=== PATIENT | male | born 1955 | race Caucasian/White ===

== ENCOUNTER 2018-06-08 15:41 | Outpatient (CLI) | payer OTHER ==
[2018-06-08 16:55] LABS: Hemoglobin 13.4 g/dL (14.0-18.0); Mean Corpuscular HGB CONC 33.9 g/dL (32.0-36.0); Mean Corpuscular Hemoglobin 34.6 pg (27.0-31.0); Mean Platelet Volume 6.9 fL (7.4-10.4); Platelet Count 273 thou/uL (130-400); RBC Distribution Width 11.8 % (11.5-14.5); Red Blood Cell (RBC) Count 3.88 mill/uL (4.70-6.10); White Blood Cell (WBC) Count 6.3 thou/uL (4.8-10.8)
[2018-06-08 17:20] LABS: Anion Gap 14 mmol/L (10-20); BUN (Urea Nitrogen) 12 mg/dL (8.4-25.7); Calc. Creatinine Clearance 0 mL/min (70-130); Calcium 9.7 mg/dL (7.8-10.44); Carbon Dioxide 27 mmol/L (23-31); Chloride 100 mmol/L (98-107); Estimated GFR-MDRD Greater than 90; Glucose 98 mg/dL (80-115); Potassium 4.2 mmol/L (3.5-5.1); Sodium 137 mmol/L (136-145)
== END 2018-06-08 15:42 | disposition home or self-care (01) ==
LOC: LABBT 15:41
PROVIDERS: ATTEND Orthopaedic Surgery
DX: Z01.818 Encounter for other preprocedural examination (principal); M75.101 Unspecified rotator cuff tear or rupture of right shoulder, not specified as traumatic
CPT/HCPCS: 80048; 85027; 93005; 93010

== ENCOUNTER 2018-06-10 10:52 | Day surgery (SDC) | payer OTHER ==
[2018-06-08 16:11] VITALS: BMI 26.8
[2018-06-10] MEDS ORDERED: Fentanyl 100 MCG/2 ML VIAL ONE ×2 (12:16→13:51)
[2018-06-10] MEDS ORDERED: Midazolam HCl 2 mg/2 ml Vial ONE (12:16)
[2018-06-10] MEDS ORDERED: Promethazine HCl 25 MG/ML VIAL IM PRN (12:45)
[2018-06-10] MEDS ORDERED: HYDROcodone/Acetaminophen 5/325 mg Tablet PO PRN ×2 (12:45)
[2018-06-10] MEDS ORDERED: Ondansetron HCl/PF 4 MG/2 ML Vial IVP PRN (12:45)
[2018-06-10] MEDS ORDERED: Ropivacaine 0.2% 550 ML 550 ML NERVE BLCK SCH (12:45)
[2018-06-10] MEDS ORDERED: traMADol HCl 50 MG TAB PO PRN ×2 (12:45)
[2018-06-10] MEDS ORDERED: Zolpidem Tartrate 5 MG TAB PO PRN (12:45)
[2018-06-10] MEDS ORDERED: Fentanyl 100 MCG/2 ML VIAL IV PRN (12:46)
[2018-06-10] MEDS ORDERED: CEFAZOLIN/Water 2 GM/20 ML SYRINGE ONE (14:14)
[2018-06-10] MEDS ORDERED: Bupivacaine/Epinephrine 0.25% 30 ML VIAL ONE (14:46)
[2018-06-10] MEDS ORDERED: PHENYLEPHRINE-NS 100 MCG/ML 10 ML SYRINGE ONE (16:01)
--- NOTE | 2018-06-11 09:27 | HP ---
HISTORY OF PRESENT ILLNESS: Mr. Steve Jolly is a 63-year-old right-handed male, right shoulder pain for 4 weeks. 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 He has pain at night. MRI showed a full thickness tear of supraspinatus, AC joint arthritis, biceps tendonopathy. PAST MEDICAL HISTORY: Hypertension, embolism, thrombus, DVT lower extremity. PAST SURGICAL HISTORY: Left knee replacement, colonoscopy. MEDICATIONS: Include amlodipine, benazepril, melatonin, meloxicam, and multivitamin. SOCIAL HISTORY: Former smoker. Alcohol occasional. Denies drug use. 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 ALLERGIES: No known allergies. PHYSICAL EXAMINATION: GENERAL: Alert and oriented male in no acute distress, resting comfortably in bed. EXTREMITIES: Focus exam, right upper extremity, no assymetry. Patient's elevation is 150, 30 degrees, 4/5 supinated strength. Positive jobes . No instability. Neurovascularly intact distally 2+ radial pulse, no incisions. MRI showed a full thickness retracted supraspinatus tear, AC joint arthritis of his biceps tendonopathy. IMPRESSION: Right rotator cuff tear. ASSESSMENT AND PLAN: Discussed with patient the risks and benefits of arthroscopic evaluation for rotator cuff repair, possible biceps tenodesis. I discussed I would not perform a tenotomy. I discussed the postoperative care, the risks and benefits of surgery to include pain, scar, bleeding, infection, damage to vital structures, decreased range of motion or strength, blood clots, loss life or limb. The patient understands the risks and benefits and elected to proceed. The patient will be discharged home with a hand motion sling until follow up in 10-14 days with pain medications. PORFIRIO
--- NOTE | 2018-06-14 13:24 | OP ---
DATE OF PROCEDURE: 06/10/2018 PREOPERATIVE DIAGNOSIS: Full-thickness supraspinatus tear. POSTOPERATIVE DIAGNOSES: Full-thickness supraspinatus tear, almost near complete infraspinatus tear with longitudinal split. PROCEDURE PERFORMED: Right arthroscopic rotator cuff repair. STAFF: Ziyad Bai M.D. ANESTHESIOLOGIST: Colt Franklin MD and Colt Samuels MD. ANESTHESIA: The patient received GETA interscalene block. ESTIMATED BLOOD LOSS: 30 mL. TOURNIQUET TIME: None. IMPLANTS: A 5.5 corkscrew x2, a 5.5 SwiveLock x2. ANTIBIOTICS: Ancef 2 grams. COMPLICATIONS: None. HISTORY OF PRESENT ILLNESS: Mr. Jolly is a 63-year-old male, who presented with 4 weeks of right shoulder pain. The patient had a fall and injured his shoulder, pain can be severe with or without activities. MRI showed a full- thickness acromion. No biceps tearing or AC joint arthritis. Discussed with the patient the risks and benefits of arthroscopic evaluation of right rotator cuff for repair, possible biceps tenodesis. I discussed risks and benefits of surgery to include pain, scar, bleeding, infection, damage to vital structures, decreased range of motion or strength, failure of healing, loss of life or limb , and blood clot. The patient understands the risks and benefits and elected to proceed. DESCRIPTION OF PROCEDURE: Time-out was performed designating the patient's right upper extremity as the operative based on sight, consents, markings. The patient was placed in a beach-chair position. Right upper extremity was prepped and draped in a sterile fashion. Posterior working portal and anterior working portal were placed intra-articularly within the shoulder to evaluate the shoulder. The biceps had a little labral foramen throughout its course and peeled back, but did not have a full-thickness peel off. There was no damage to the biceps. It was difficult to appreciate the rotator cuff tear intraarticularly. We moved subacromially, which noticed a full-thickness supraspinatus tear and likely the majority of the infraspinatus. There was a longitudinal split and I could not tell if it was within the infraspinatus or posteriorly. I created a footprint, which I debrided articular cartilage about 5 mm to 1 cm to create a footprint and create bleeding healthy bone. I placed two 5.5 corkscrews on the medial aspect, passed sutures across the rotator cuff , sewed 4 total horizontal mattress sutures and 2 lateral rows to compress the cuff down. Little bit of dog ears, but overall I liked the alignment and placement. There was a little bit of continued longitudinal split within the anterior portion of the cuff and posterior portion of the cuff. Therefore, I used two simple #2 FiberWire sutures and passed them to close down the interval. I then cut all my limbs, took final pictures. I closed my lateral portal with my 2 stab incisions for my anchors and then my anterior and posterior portal incisions with 3-0 nylon. The patient will be discharged home. Follow up in 2 weeks. Elbow, wrist, and hand motion without shoulder motion. The patient will be taking aspirin daily and will follow up. PORFIRIO
== END 2018-06-10 18:00 | disposition home or self-care (01) ==
LOC: SDC 10:52
PROVIDERS: ATTEND Orthopaedic Surgery
PROC: 0RHJ44Z Insertion of Internal Fixation Device into Right Shoulder Joint, Percutaneous Endoscopic Approach (ICD-10-PCS; principal; 2018-06-10)
PROC: 0LM14ZZ Reattachment of Right Shoulder Tendon, Percutaneous Endoscopic Approach (ICD-10-PCS; principal; 2018-06-10)
DX: S46.011A Strain of muscle(s) and tendon(s) of the rotator cuff of right shoulder, initial encounter (principal); I10 Essential (primary) hypertension; Z86.718 Personal history of other venous thrombosis and embolism; Z87.891 Personal history of nicotine dependence; Z79.1 Long term (current) use of non-steroidal anti-inflammatories (NSAID); Z79.899 Other long term (current) drug therapy; Z96.652 Presence of left artificial knee joint; X50.0XXA Overexertion from strenuous movement or load, initial encounter
CPT/HCPCS: A4306; C1713; J2250; J2795; J3010